=== PATIENT | male | born 1960 | race Caucasian/White ===

== ENCOUNTER 2016-09-02 07:20 | Day surgery (SDC) | payer OTHER ==
--- NOTE | ~2016-09-02 | OP ---
Record Of Operation [facility] [address] [place]. [address] NAME: RAMESH BRENNAN : 64 STATUS : [facility]#: [id number] AGE: 56 ADM/REG DATE : 09/02/16 MR#: [id number] REPORT SERV DATE: 09/02/16 DICTATED BY: GEREMIAS KAN DATE: 09/02/16 REPORT STATUS : Draft TRANSCRIBED BY: MODL DATE: 09/02/16 DATE OF PROCEDURE: 09/02/2016 PREOPERATIVE DIAGNOSIS: Right vocal fold lesion. POSTOPERATIVE DIAGNOSIS: Right vocal fold lesion. PROCEDURE: Microdirect laryngoscopy with biopsy. SURGEON: Geremias Kan M.D. ANESTHESIA: General endotracheal anesthesia was utilized. COMPLICATIONS: None. ESTIMATED BLOOD LOSS: Minimal. FINDINGS: Exophytic right and hyperkeratotic right true vocal fold lesion, anterior one-half of the cord, does not involve the anterior commissure of the infraglottic space of the trachea. The vocal fold has complete mobility and there was a small contact ulcer approximating in the contralateral cord. INDICATION FOR PROCEDURE: This is a 56-year-old gentleman with excessive smoking history, smoking 1-1/2 pack a day for many, many years. He came to the clinic with hoarseness that was worsening over the last couple of months and a flexible exam in the clinic showed a right vocal fold lesion. He comes in today for a microdirect laryngoscopy and biopsy. Intraoperative photographs will be taken. He was described the risks and benefits of the procedure. He voiced understanding, signed the consent. The consent was placed on the chart at the time of the operation. DESCRIPTION OF PROCEDURE: The patient was wheeled to the OR suite, and placed on the OR table in supine position. He was intubated and placed under general endotracheal anesthesia using a regular 6.5 endotracheal tube. LTA was sprayed on the cords at intubation. The table was turned 90 degrees. He was prepped and draped in a standard fashion for a microdirect laryngoscopy. He was edentulous. We put a wet 4 x 4 over his superior alveolus. I would use the Dedo-Ossoff laryngoscope to evaluate first his hypopharynx, lifted his tongue base, and his tonsils appeared normal, palpably soft. Piriforms were clear of lesion. Hypopharynx was clear of lesion. Normal-appearing epiglottis. I would place the scope into his laryngeal inlet and suspended from a Lewy suspension arm on the [place] stand. He had a head drape placed as well. He was noted to have a right vocal fold lesion. Intraoperative photographs were taken. This was on the right one-half of the cord. There was a hyperkeratotic, somewhat exophytic lesion, it was nonobstructive. It did not extend the anterior commissure. There was normal mucosa at the area of the anterior commissure that extended posteriorly, perhaps 2 mm before the lesion began, but it did seem to appear at the medial aspect of the right cord extending onto the cord itself towards the ventricle. There is a hyperkeratotic contralateral area that looks more like a contact Record Of Operation [address] [place]. [address] NAME: RAMESH BRENNAN : 64 STATUS : [facility] PAT#: [id number] AGE: 56 ADM/REG DATE : 09/02/16 MR#: [id number] REPORT SERV DATE: 09/02/16 DICTATED BY: GEREMIAS KAN DATE: 09/02/16 REPORT STATUS : Draft TRANSCRIBED BY: BRIANA DATE: 09/02/16 ulcer at the contralateral cord, small 1-2 mm in size, shaggy mass on the right extending probably down one-half the length of the anterior aspect of the cord. I visualized the trachea. There was no evidence of lesion in the trachea or the infraglottic space as well. So at this point, I would take two biopsies, one would be for frozen, one would be for permanent. I placed a 1:100,000 epinephrine-soaked patties on the cords until there was meticulous hemostasis, and photographs were taken. Area was dried and patties were removed from the airway. The patient was taken out of suspension, and the laryngoscope was removed from his larynx and oral cavity as well as the wet 4 x 4 from the superior alveolus. He was turned 90 degrees. He was returned to the care of anesthesiologist, subsequently awoken, and stably transferred to the recovery area. There were no complications. The patient tolerated the procedure well. ELDA/BRIANA Geremias Kan M.D. / [id number] CC: Richie Wheatley M.D.
[~2016-09-02 07:20] MED LIST: ATORVASTATIN
== END 2016-09-02 13:35 | disposition home or self-care (01) ==
LOC: SDC 07:20
PROVIDERS: Otolaryngology
PROC: 0CBT8ZX Excision of Right Vocal Cord, Via Natural or Artificial Opening Endoscopic, Diagnostic (ICD-10-PCS; principal; 2016-09-02 09:00)
DX: C32.0 Malignant neoplasm of glottis (principal); J44.9 Chronic obstructive pulmonary disease, unspecified; R49.0 Dysphonia; L40.9 Psoriasis, unspecified; J43.9 Emphysema, unspecified; E78.00 Pure hypercholesterolemia, unspecified; F17.200 Nicotine dependence, unspecified, uncomplicated; Z79.899 Other long term (current) drug therapy
CPT/HCPCS: 85014; 85018; 88305; 88331; 88342; 93005; J0330; J0690; J2250; J2405; J3010